=== PATIENT | male | born 2000 ===

== ENCOUNTER 2022-12-13 15:01 | Outpatient (CLI) | payer OTHER, SELFPAY | END 2022-12-13 15:02 | disposition home or self-care (01) | PROVIDERS: PCP Family Medicine; Visit Provider Family Medicine | DX: Z00.00 Encounter for general adult medical examination without abnormal findings (principal); E66.9 Obesity, unspecified; Z13.6 Encounter for screening for cardiovascular disorders; Z13.29 Encounter for screening for other suspected endocrine disorder | CPT/HCPCS: 80053; 80061; 84443 ==

== ENCOUNTER 2024-06-11 11:29 | Outpatient (CLI) | payer OTHER, SELFPAY | END 2024-06-11 11:30 | disposition home or self-care (01) | PROVIDERS: PCP Family Medicine; Visit Provider Family Medicine | DX: Z11.4 Encounter for screening for human immunodeficiency virus [HIV] (principal); Z11.59 Encounter for screening for other viral diseases | CPT/HCPCS: 86703; 86803 ==